=== PATIENT | male | born 1970 | race Two or more races ===

== ENCOUNTER 2024-06-20 15:17 | Emergency (ER) | payer SELFPAY ==
[~2024-06-20] VITALS: Ht 167.6 cm; Wt 63.6 kg
[2024-06-20] MEDS: THIAMINE 100mg/ml INJ (200mg/2ml VIAL) IV ONE (15:45)
[2024-06-20 16:14] VITALS: BP 127/89; RESP 14
[2024-06-20] MEDS: SODIUM CHLORIDE 0.9% 1,000 ML IVB ONE (16:42)
[2024-06-20 17:00] VITALS: PULSE 107; O2SAT 91
[2024-06-20] MEDS: SODIUM CHLORIDE 0.9% 1,000 ML IV ONE (18:40)
[2024-06-21] VITALS: PULSE 93; O2SAT 98
== END 2024-06-21 00:35 | disposition home or self-care (01) ==
LOC: ER 15:17 → EDBD 15:17 → ER 06-21 00:35
DX: F10.10 Alcohol abuse, uncomplicated (principal); F17.210 Nicotine dependence, cigarettes, uncomplicated; Y90.0 Blood alcohol level of less than 20 mg/100 ml
CPT/HCPCS: 36415; 80320; 96361; 96374; 99283; J3411; J7030